=== PATIENT | male | born 1985 | race African-American/Black ===

== ENCOUNTER 2024-01-27 11:08 | Observation (INO) | payer SELFPAY ==
[2024-01-27] MEDS ORDERED: CARVEDILOL 6.25 MG TABLET (FP) ONE (12:29)
[2024-01-27] MEDS: NIFEdipine E.R 60 MG TABLET PO SCH (12:30)
[2024-01-27] MEDS: ATORVASTATIN CA 40 MG TABLET (FP) PO ONE (13:00)
[2024-01-27] MEDS: CARVEDILOL 12.5 MG TABLET (FP) PO ONE (13:00)
[2024-01-27 14:39] LABS: BASO % 0.9 % (0-2.0); EOS % 1.9 % (0-4.5); HEMATOCRIT 45.3 % (35.4-49); HEMOGLOBIN 15.1 GM/dL (11.7-16.9); LYMPH % 23.8 % (8-40); MCH 30.2 pg (25.7-33.7); MCHC 33.3 g/dl (32.0-35.9); MEAN CELL VOLUME 90.6 fl (80-96); MEAN PLT VOLUME 8.9 fl (7.5-11.1); MONO % 7.3 % (3.8-10.2); NEUT % 66.1 % (42.8-82.8); PLATELET COUNT 204 10^3/uL (134-434); RDW 13.5 % (11.9-15.9); WHITE BLOOD COUNT 6.9 K/mm3 (4.0-10.0)
[2024-01-27 14:56] LABS: POTASSIUM 3.4 mmol/L (3.5-5.1)
[2024-01-27 14:59] LABS: ALBUMIN 3.3 g/dl (3.4-5.0); BLOOD UREA NITROGEN 13.9 mg/dL (7-18)
[2024-01-27 15:02] LABS: CREATININE 1.1 mg/dL (0.55-1.3)
[2024-01-27 15:04] LABS: BILIRUBIN,TOTAL 0.8 mg/dL (0.2-1); TOT PROT 6.8 g/dl (6.4-8.2)
[2024-01-27] MEDS ORDERED: FUROSEMIDE 40 MG/4 ML INJECTABLE VIAL ONE (19:24)
[2024-01-27] MEDS: FUROSEMIDE 40 MG/4 ML INJECTABLE VIAL IVPUSH ONE (19:28)
[2024-01-27 20:11] VITALS: RESP 22; BMI 44.1
[2024-01-27] MEDS ORDERED: ACETAMINOPHEN 1000 MG/100 ML BAG IVPB PRN (20:23)
[2024-01-27] MEDS: CARVEDILOL 12.5 MG TABLET (FP) PO SCH (21:40)
[2024-01-27] MEDS: ATORVASTATIN CA 40 MG TABLET (FP) PO SCH (21:40)
[2024-01-27] MEDS: HEPARIN NA (PORCINE) 5,000 UNITS/ML 1ML VIAL SQ SCH (21:40)
[2024-01-28 06:13] VITALS: BP 130/70; PULSE 72; TEMP 97.6
[2024-01-28 06:35] LABS: HEMATOCRIT 45.7 % (35.4-49); HEMOGLOBIN 15.3 GM/dL (11.7-16.9); MCH 30.8 pg (25.7-33.7); MCHC 33.4 g/dl (32.0-35.9); MEAN PLT VOLUME 9.3 fl (7.5-11.1); PLATELET COUNT 209 10^3/uL (134-434); RBC 4.96 M/mm3 (4.00-5.60); RDW 13.4 % (11.9-15.9); WHITE BLOOD COUNT 6.1 K/mm3 (4.0-10.0)
[2024-01-28 06:53] LABS: POTASSIUM 3.6 mmol/L (3.5-5.1)
[2024-01-28 06:54] LABS: ALBUMIN 3.4 g/dl (3.4-5.0); BLOOD UREA NITROGEN 15.3 mg/dL (7-18); CALCIUM 8.8 mg/dL (8.5-10.1)
[2024-01-28 06:58] LABS: CREATININE 1.1 mg/dL (0.55-1.3)
[2024-01-28 07:00] LABS: BILIRUBIN,TOTAL 0.7 mg/dL (0.2-1); TOT PROT 6.8 g/dl (6.4-8.2)
[2024-01-28] MEDS: NIFEdipine E.R 60 MG TABLET PO SCH (10:57)
== END 2024-01-28 12:30 | disposition home or self-care (01) ==
LOC: JER 11:08 → JERBED 15:43 → J4S 19:52
PROVIDERS: ADMIT Internal Medicine; ATTEND Internal Medicine
DX: R06.02 Shortness of breath (principal); I10 Essential (primary) hypertension; Z91.199 Patient's noncompliance with other medical treatment and regimen due to unspecified reason
CPT/HCPCS: 36415; 71046-TC-FY; 80053; 84484; 85025; 85027; 93005; 93010; 99285-25; G0378; J1644